=== PATIENT | female | born 1965 | race Caucasian/White ===

== ENCOUNTER 2023-08-26 23:45 | Emergency (ER) | payer OTHER, SELFPAY ==
--- NOTE | ~2023-08-26 | CT_ITS ---
EXAMINATION: CT ABDOMEN AND PELVIS WITHOUT CONTRAST CLINICAL INFORMATION: Right flank pain COMPARISON: None available. TECHNIQUE: Multidetector volumetric imaging was performed from the superior aspect of the liver through the pubic symphysis. Sagittal and coronal reformatted images were obtained on the technologist's workstation. This CT examination was performed using dose optimization techniques as appropriate, variously including the following: *Automated exposure control *Adjustment of mA and/or kV according to patient size (this includes techniques or standardized protocols for targeted exams where dose is matched to indication/reason for exam; i.e. extremities or head) *Use of iterative reconstruction technique DLP: 502 mGy-cm FINDINGS: LUNG BASES: Linear bibasilar atelectasis. Trace pericardial effusion. LIVER, GALLBLADDER, AND BILIARY TREE: The liver is normal in size, shape, and attenuation. No focal hepatic lesion or biliary ductal dilatation is identified on this noncontrast exam. The gallbladder is unremarkable with no evidence of radiopaque gallstones, gallbladder wall thickening, or obvious pericholecystic inflammatory changes. PANCREAS: Unremarkable. SPLEEN: Unremarkable. ADRENAL GLANDS: Unremarkable. KIDNEYS AND URETERS: There is a proximal right ureteral calculus measuring 6 mm with moderate hydronephrosis and perinephric stranding. No left-sided hydronephrosis. A few scattered bilateral renal calculi measure up to 5 mm in the mid right kidney. BLADDER: Mildly distended and grossly unremarkable. GASTROINTESTINAL TRACT: Much of the colon is collapsed which limits evaluation for wall thickening. No evidence of bowel obstruction. No free fluid or free air is seen. ABDOMINAL WALL: No significant hernia is appreciated. LYMPH NODES: No lymphadenopathy is seen, though assessment is limited in the absence of intravenous contrast. VASCULAR: Unremarkable. PELVIC VISCERA: Unremarkable. OSSEOUS STRUCTURES: Degenerative disc disease with disc space narrowing at L5-S1. Lower lumbar facet arthropathy. CT/CT abdomen pelvis wo IV con IMPRESSION: 1. Proximal right ureteral calculus measuring 6 mm with moderate hydronephrosis. 2. Few bilateral renal calculi. 3. Trace pericardial effusion.
[2023-08-27 00:27] VITALS: BP 135/54; PULSE 52; RESP 22; TEMP 36.3; O2SAT 98; BMI 22.8
[2023-08-27 00:46] LABS: Appearance Urine Turbid; Color Urine Yellow; Glucose Urine UA Negative (Negative); Leukocyte Esterase Urine Negative (Negative); Nitrite Urine Negative (Negative); Specific Gravity - Urine 1.015 (1.005-1.025); UMIC TRIGGER UACC YES; Urine Blood Moderate (2+) (Negative); Urine Ketones 40 mg/dL (Negative); Urine Protein Negative (Neg-Trace)
[2023-08-27 00:49] LABS: Bacteria Urine None Seen (None Seen); Hyaline Casts Urine 0-2 /LPF (0-2); RBC Urine >20 /HPF (0-2); Squamous Epithelial Cell Urine 0-2 /HPF (0-2); WBC Urine 0-5 /HPF (0-5)
[2023-08-27 00:52] LABS: Basophils Percent Auto 0.3 % (0-2); Eosinophils Percent Auto 0.1 % (0-4); Hematocrit 45.9 % (37.0-47.0); Hemoglobin 15.9 g/dl (12.0-16.0); Imm Gran Abs Auto 0.02 X10*3/uL (0.00-0.03); Imm Gran Pct Auto 0.2 % (0.0-0.4); Lymphocytes Absolute Auto 0.5 X10*3/uL (1.2-4.9); Lymphocytes Percent Auto 5.1 % (20-40); MANUAL DIFF FLAG SCAN; Mean Corpuscular HGB Conc 34.6 g/dl (31.0-35.0); Mean Corpuscular Hemoglobin 30.2 pg (27.0-33.0); Mean Corpuscular Volume 87.3 fL (80.0-98.0); Mean Platelet Volume 9.6 fL (9.4-12.3); Monocytes Absolute Auto 0.3 X10*3/uL (0.1-1.2); Monocytes Percent Auto 3.7 % (2-11); Neutrophils Absolute Auto 8.1 x10*3/uL (2.0-8.3); Neutrophils Percent Auto 90.6 % (45-73); Platelet Count 189 X10*3/uL (160-400); Red Blood Count 5.26 X10*6/uL (4.20-5.50); Red Cell Distribution Width 12.4 % (11.0-16.0); SCAN SMEAR FLAG 1; White Blood Count 8.9 X10*3/uL (4.8-10.8)
[2023-08-27 01:08] LABS: Alanine Aminotransferase 20 U/L (0-31); Albumin Level 4.9 g/dL (3.5-5.0); Alkaline Phosphatase 86 U/L (39-117); Anion Gap 17 (12-20); Aspartate Amino Transferase 20 U/L (5-31); Bilirubin Total 0.8 mg/dL (0.0-1.0); Blood Urea Nitrogen 15 mg/dL (9-16); Calcium 10.3 mg/dL (8.4-10.2); Carbon Dioxide 22 mmol/L (22-29); Chloride 108 mmol/L (96-108); Creatinine Clr Calc Pharmacy 52.5; Estimated Glomerular Filt Rate 50; Glucose Random 141 mg/dL (60-115); Potassium 3.9 mmol/L (3.3-5.1); Sodium 143 mmol/L (135-145); Total Protein 7.7 g/dL (6.5-8.0)
[2023-08-27 01:09] LABS: SLIDE REVIEW VERIFIED
--- NOTE | 2023-08-27 02:24 | ED.GENADULT ---
HPI - General Adult General Chief complaint: Abdominal Pain Stated complaint: abdominal pain Time Seen by Provider: 08/27/23 02:23 Source: patient, RN notes reviewed and old records reviewed Mode of arrival: ambulatory Limitations: no limitations History of Present Illness ED Provider: Dr. Everardo Gonzalez HPI narrative: 58-year-old female past medical history significant for hypothyroidism, obstructive uropathy presents for evaluation of right flank pain that radiates to her right lower abdomen. Patient reports the pain started last night. The pain has been intermittent A couple hours prior to arrival the pain returned and has been severe She reports associated nausea and vomiting and vomited just prior to my evaluation The pain also waxing own and wanes in intensity but currently is 10/10. Patient does state that this pain feels worse than her last kidney stones She denies any urination or urinary frequency Related Data Previous Rx's ?Medication ?Instructions ?Recorded ketorolac 10 mg tablet 10 mg PO Q6H PRN pain 5 days #20 08/27/23 tabs oxycodone 5 mg tablet 5 mg PO Q6H PRN pain #14 tabs 08/27/23 tamsulosin 0.4 mg capsule (Flomax) 0.4 mg PO DAILY #14 caps 08/27/23 Allergies Allergy/AdvReac Type Severity Reaction Status Date / Time Sulfa (Sulfonamide Allergy Hives Verified 08/27/23 00:33 Antibiotics) Review of Systems Review of Systems: Yes all other systems are reviewed and are negative Constitutional: Constitutional: Denies body ache(s), Denies chills and Denies fever(s) ENT: Denies vertigo Cardiovascular: Cardiovascular: Denies chest pain and Denies dyspnea Respiratory: Respiratory: Denies cough and Denies dyspnea Gastrointestinal: Gastrointestinal: Reports abdominal pain, Reports nausea and Reports vomiting Genitourinary: Genitourinary: Denies hematuria Musculoskeletal: Musculoskeletal: Reports back pain Integumentary/Breasts: Skin/Breast: Denies rash Neurologic: Denies vertigo PMFSH Social History Social History Alcohol intake: current Alcohol intake frequency: holidays/special occasions only Alcohol type: wine Smoked in Last 30 Days: No Use of substances other than those prescribed or required for medical reasons: No Advance Directives: No Advance Directives Information Provided: No Patient : No Physical Exam ED Vital Signs: Vital Signs - 24 hr 08/27/23 00:27 Temperature 97.4 F Pulse Rate 52 Respiratory Rate 22 H Blood Pressure 135/54 L Pulse Oximetry 98 Oxygen Delivery Method Room Air BMI result Body Mass Index 22.8 Const General: healthy appearing, alert and awake; No comfortable (Patient appears quite uncomfortable, but nontoxic appearing) or ill appearing Nutritional Appearance: well nourished Orientation/consciousness: patient oriented x3 HENMT Head: Yes normocephalic and Yes atraumatic Eyes Eyelids: Yes eyelids normal Conjunctivae: conjunctivae normal Sclerae: sclerae normal Corneas: corneas normal Pupils: Equal, round and reactive pupils present EOM: EOMs intact bilaterally Neck Neck: Yes full ROM Resp Effort & Inspection: normal respiratory effort, able to speak in complete sentences and not labored GI Inspection: No distended Palpation (GI): Soft to palpation, not firm, Tenderness to palpation present (GI) in the RLQ, no guarding and not rigid General: Yes CVA tenderness (On right) Back/Spine/Pelvis Back: CVA tenderness (On right) Skin General skin exam: elasticity normal Neuro General: patient oriented x3 Cranial nerves: Yes Equal, round and reactive pupils present and Yes Bilaterally intact EOM present Cognition (Neuro): normal cognition Extrem Other: Moving all extremities well without any obvious deformities Medications Administered Discontinued Medications Generic Name Dose Route Start Last Admin Trade Name Freq PRN Reason Stop Dose Admin Sodium Chloride 1,000 mls @ 999 mls/hr 08/27/23 02:30 08/27/23 03:45 Ns IV 08/27/23 03:30 Infused .Q1H1M EFRAIN Infusion Ketorolac Tromethamine 30 mg 08/27/23 02:21 08/27/23 02:41 Ketorolac Tromethamine 30 Mg/Ml Vial IVPUSH 08/27/23 02:22 30 mg ONCE ONE Administration Ondansetron HCl 4 mg 08/27/23 02:21 08/27/23 02:41 Ondansetron Hcl 4 Mg/2 Ml Vial IVPUSH 08/27/23 02:22 4 mg ONCE ONE Administration Medical Decision Making Medical Decision Making MDM Narrative: 58-year-old female with history obstructive uropathy presents for evaluation of right flank pain that radiates around her right lower abdomen. Her pain has been waxing and waning in intensity. History exam is consistent with kidney stone. She has no leukocytosis or signs of infection. Patient's renal functions within normal limits, there is no evidence of ISREAL. Your assess his significant for significant hematuria but no evidence of infection. Plan for CT scan abdomen pelvis without contrast, IV fluids, Zofran and analgesia with Toradol. Patient is signed out to overnight provider 05:19 My independent interpretation patient's laboratory evaluation as follows: CBC was normal. Glucose elevated 141. Urinalysis revealed moderate blood, microscopic revealed greater than 20 RBCs, 0-5 WBCs, no bacteria CT scan of the abdomen pelvis IV contrast revealed a proximal right ureteral calculus measuring 6 mm with moderate hydronephrosis. There was also bilateral scattered calculi measuring up to 5 mm in the mid right kidney. The patient felt significantly better after receiving IV Toradol. Patient was also given Flomax 0.4 mg orally prior to discharge. Patient was discharged home with prescriptions for Toradol, oxycodone and Flomax. Patient's urologist is at [facility] and she was advised to contact urologist today for follow-up. She was given printed and verbal instructions discharged home. Differential Diagnosis Differential Diagnoses: The differential diagnosis associated with the presentation includes Obstructive uropathy Flank pain Back pain Acute appendicitis less likely Lab Data MDM Lab Attestation statement: I reviewed the patient's lab results. See medical decision making above 08/27/23 00:50 08/27/23 00:50 Labs: Lab Results 08/27/23 08/27/23 Range/Units 00:41 00:50 WBC 8.9 (4.8-10.8) X10*3/uL RBC 5.26 (4.20-5.50) X10*6/uL Hgb 15.9 (12.0-16.0) g/dl Hct 45.9 (37.0-47.0) % MCV 87.3 (80.0-98.0) fL MCH 30.2 (27.0-33.0) pg MCHC 34.6 (31.0-35.0) g/dl RDW 12.4 (11.0-16.0) % Plt Count 189 (160-400) X10*3/uL MPV 9.6 (9.4-12.3) fL Immature Gran % (Auto) 0.2 (0.0-0.4) % Neut % (Auto) 90.6 H (45-73) % Lymph % (Auto) 5.1 L (20-40) % [place] % (Auto) 3.7 (2-11) % Eos % (Auto) 0.1 (0-4) % Baso % (Auto) 0.3 (0-2) % Lymph # (Auto) 0.5 L (1.2-4.9) X10*3/uL [place] # (Auto) 0.3 (0.1-1.2) X10*3/uL Eos # (Auto) 0.0 (0.0-0.4) X10*3/uL Baso # (Auto) 0.0 (0.0-0.2) X10*3/uL Abs Immat Gran (auto) 0.02 (0.00-0.03) X10*3/uL Absolute Neuts (auto) 8.1 (2.0-8.3) x10*3/uL Absolute Nucleated RBC 0.000 (0.0-0.012) X10*3/uL Nucleated RBC % (auto) 0.0 (0.0-0.2) /100WBC Smear Tech's Comments VERIFIED Sodium 143 (135-145) mmol/L Potassium 3.9 (3.3-5.1) mmol/L Chloride 108 (96-108) mmol/L Carbon Dioxide 22 (22-29) mmol/L Anion Gap 17 (12-20) BUN 15 (9-16) mg/dL Creatinine 1.12 (0.5-1.4) mg/dL Estim Creat Clear Calc 52.5 Estimated GFR 50 Random Glucose 141 H (60-115) mg/dL Calcium 10.3 H (8.4-10.2) mg/dL Total Bilirubin 0.8 (0.0-1.0) mg/dL AST 20 (5-31) U/L ALT 20 (0-31) U/L Alkaline Phosphatase 86 (39-117) U/L Total Protein 7.7 (6.5-8.0) g/dL Albumin 4.9 (3.5-5.0) g/dL Urine Color Yellow Urine Appearance Turbid Urine pH 7.0 (5.0-9.0) Ur Specific [place] 1.015 (1.005-1.025) Urine Protein Negative (Neg-Trace) mg/dL Urine Glucose (UA) Negative (Negative) mg/dL Urine Ketones 40 (Negative) mg/dL Urine Blood Moderate (2+) H (Negative) Urine Nitrite Negative (Negative) Ur Leukocyte Esterase Negative (Negative) Urine RBC >20 H (0-2) /HPF Urine WBC 0-5 (0-5) /HPF Ur Squamous Epith Cells 0-2 (0-2) /HPF Urine Bacteria None Seen (None Seen) Hyaline Casts 0-2 (0-2) /LPF Radiology Impression Discussion of test interpretation with radiology: I have reviewed the radiologist's reading. Radiologist Impression: CT abdomen pelvis wo IV con IMPRESSION: 1. Proximal right ureteral calculus measuring 6 mm with moderate hydronephrosis. 2. Few bilateral renal calculi. 3. Trace pericardial effusion. Dictated By: Wil Camargo MD Independent Historian Clinical information obtained from an independent historian. History obtained from or confirmed by: Spouse Prescription Management I considered prescription management with: Pain Medication Discharge Plan Discharge Clinical Impression: Acute right flank pain, Calculus of proximal right ureter, Bilateral kidney stones Patient Disposition: Home, Self-Care Instructions: How to Strain Your Urine (ED), Ureteral Stones (ED) Additional Instructions: Your blood work was unremarkable. Your CT scan of the abdomen pelvis did reveal a 6 mm proximal ureteral stone. You also have multiple stones in both kidneys with the biggest one being 5 mm. Take Toradol 10 mg pills, 1 pill 4 times a day as needed for pain Take Tylenol (acetaminophen) 500 mg pills, 2 pills every 4-6 hours as needed for pain. For pain not relieved by Toradol or Tylenol take oxycodone 5 mg pills, 1 pill every 4 hours as needed for pain. Do not drive or work while taking this medication since they can cause sleepiness. Oxycodone is a narcotic medication that can be addicting. If you are concerned about addiction you can ask the pharmacist for less pills or do not get this prescription filled. Take Flomax (tamsulosin) 0.4 mg once a day for the next 2 weeks or until you pass the stone. ?This medication helps relax the ureter and may help you pass the stone sooner. Call your urologist today to make a follow-up appointment within 2-3 days to be re-evaluated. Please return to the emergency department if your symptoms get worse or if you develop any symptoms that are concerning to you. CT abdomen pelvis wo IV con IMPRESSION: 1. Proximal right ureteral calculus measuring 6 mm with moderate hydronephrosis. 2. Few bilateral renal calculi. 3. Trace pericardial effusion. Dictated By: Wil Camargo MD Prescriptions: New tamsulosin [Flomax] 0.4 mg capsule 0.4 mg PO DAILY Qty: 14 0RF oxycodone 5 mg tablet 5 mg PO Q6H PRN (Reason: pain) Qty: 14 0RF Rx Instructions: Patient may request partial refill; Partial Fill upon patient request. ketorolac 10 mg tablet 10 mg PO Q6H PRN (Reason: pain) 5 Days Qty: 20 0RF Print Language: Tamazight
[2023-08-27] MEDS: ondansetron HCL 4 MG/2 ML VIAL IVPUSH (02:41)
[2023-08-27] MEDS: Ketorolac Tromethamine 30 MG/ML VIAL IVPUSH (02:41)
[2023-08-27] MEDS: 0.9 % Sodium Chloride 1,000 ML 999 ML IV (02:42)
--- NOTE | 2023-08-27 05:22 | PC.NURSE ---
Patient is alert and oriented x3, VSS. Patient medicated per MAR,currently resting in a stretcher bed, eyes closed, RR 17, respirations even and unlabored. patient's at bedside, call barone in reach, plan of care ongoing.
[2023-08-27 05:44] VITALS: BP 103/64; PULSE 62; RESP 17; TEMP 36.7; O2SAT 95
[2023-08-27] MEDS: Tamsulosin HCL 0.4 MG CAPSULE PO (05:45)
[2023-08-27 06:01] VITALS: BP 103/64; PULSE 62; RESP 16; TEMP 36.7; O2SAT 95
== END 2023-08-27 06:02 | disposition home or self-care (01) ==
PROVIDERS: Emergency Provider Emergency Medicine Emergency Medical Services; PCP Internal Medicine
DX: N13.2 Hydronephrosis with renal and ureteral calculous obstruction (principal)
CPT/HCPCS: 36415; 74176; 80053; 81001; 85025; 96361; 96374; 96375; 99284; 99285; J1885; J2405